=== PATIENT | male | born 1950 | race Caucasian/White ===

== ENCOUNTER → 2017-08-24 07:22 | Outpatient (CLI) | payer OTHER, SELFPAY ==
--- NOTE | 2017-08-24 | DI.ECHO.S_ITS ---
[facility] +---------+ : : [address] [place] : : : : [id number] : : : : Phone: [phone] +---------+ Echocardiogram Report + + :Name: GWEN REYES Study Date: 08/24/2017 Height: 70 in : :[facility] Weight: 201 lb : : Gender: Male BSA: 2.1 m2 : :: 1950 Age: 67 yrs BP: 132/58 mmHg: :Reason For Study: Murmur : : Performed By: Tamara Ann : :Referring: [email or web address] : + + Interpretation Summary The ejection fraction is estimated to be 60-65%. There is no significant valvular heart disease. Procedure: A two-dimensional transthoracic echocardiogram with color flow and Doppler was performed. The study quality was technically adequate. There is no prior echocardiogram noted for this patient. The patient was in normal sinus rhythm during the exam. Left Ventricle: The left ventricle is normal in size, wall thickness, and systolic function without any focal wall motion abnormalities. The ejection fraction is estimated to be 60-65%. Grade I diastolic dysfunction. Right Ventricle: The right ventricle grossly appears normal in size with probable normal systolic function. Atria: The left atrial size is normal. Right atrial size is normal. The interatrial septum is intact with no evidence for an atrial septal defect. Mitral Valve: The mitral valve is normal in structure and function. There is no mitral regurgitation noted. Aortic Valve: The aortic valve opens well. There is trace aortic regurgitation. Tricuspid Valve: The tricuspid valve is normal in structure and function. No tricuspid regurgitation. Pulmonic Valve: The pulmonic valve is not well seen, but is grossly normal. There is trace pulmonic regurgitation. Great Vessels: The aortic root is normal size. The ascending aorta is at the upper limits of normal in size. The IVC is of normal diameter and collapses greater than 50% with a sniff. This suggests a low right atrial pressure of 3 mm Hg. Pericardium/ Pleura There is no pericardial effusion. There is no pleural effusion. MMode/2D Measurements & Calculations LVIDd: 4.9 cm Ao root diam: 3.4 cm LVIDs: 3.1 cm Aortic Jxn: 2.8 cm FS: 35.9 % asc Aorta Diam: 3.4 cm EPSS: 0.58 cm IVSd: 0.82 cm LVPWd: 0.77 cm LV armas. diameter/BSA (cm/m^2): 2.3 LV sys. diameter/BSA (cm/m^2): 1.5 LA dimension: 3.6 cm RA long axis: 4.3 cm LA A2 area: 17.6 cm2 RA area: 16.1 cm2 LA A4 area: 16.7 cm2 RA vol: 51.3 ml LA length (vol): 4.6 cm RA : 24.5 ml/m2 LA vol: 53.7 ml IVC diam: 0.90 cm LA vol index: 25.7 ml/m2 RVDd major: 4.4 cm RVD1 (basal): 3.4 cm RVD2 (mid): 3.2 cm Doppler Measurements & Calculations MV E max saran: 94.5 cm/sec PA V2 max: 86.5 cm/sec MV A max saran: 123.2 cm/sec PA V2 mean: 54.5 cm/sec MV E/A: 0.77 PA mean P.5 mmHg Med Peak E' Saran: 7.3 cm/sec PA Accel Time: 0.12 sec E/E' med: 13.0 Lat Peak E' Saran: 7.7 cm/sec E/E' lat: 12.3 E/e' average: 12.7 MV dec time: 0.21 sec MV P1/2t: 62.4 msec MV P1/2t max saran: 93.2 cm/sec MVA(P1/2t): 3.5 cm2 Reading Physician:04:11 PM
== END ==
PROVIDERS: Visit Provider Family Medicine
DX: R01.1 Cardiac murmur, unspecified (principal)
CPT/HCPCS: 93306